=== PATIENT | male | born 1945 | race Caucasian/White ===

== ENCOUNTER → 2024-03-29 | Outpatient (CLI) | payer MEDICARE, OTHER ==
--- NOTE | 2024-03-29 09:24 | CT ---
EXAMINATION TYPE: CT brain wo con CT DLP: 995.50 mGycm, Automated exposure control for dose reduction was used. DATE OF EXAM: 03/29/2024 8:51 AM COMPARISON: None. CLINICAL INDICATION: Male, 78 years old with history of R55 SYNCOPE R56.9 CONVULSIONS, recent near sy ncope. hx of strokes. TECHNIQUE: Brain: Axial CT images of the brain were obtained with coronal and sagittal reformats created and rev iewed. Contrast used: None. Oral contrast used: None. FINDINGS: Brain: Extra-axial spaces: No abnormal extra-axial fluid collections. Ventricular system: Dilatation in proportion to cerebral atrophy. Cerebral parenchyma: Cerebral atrophy. No acute intraparenchymal hemorrhage or mass effect. The colin -white junction is well differentiated. Scattered hypoattenuating areas are seen within the white mat ter. Cerebellum: Unremarkable. Mass effect: No evidence of midline shift. Intracranial vasculature: Atherosclerotic calcifications of the intracranial vessels. Soft tissues: Normal. Calvarium/osseous structures: No depressed skull fracture. Paranasal sinuses and mastoid air cells: Mild scattered paranasal sinus disease. Visualized orbits: Orbital contents are intact. IMPRESSION: 1. No acute intracranial process. 2. Nonspecific white matter changes, likely secondary to chronic small vessel ischemic disease. [facility], , 03/29/2024 9:22 AM
== END | disposition home or self-care (01) ==
LOC: RADCTMAIN 08:29
PROVIDERS: ATTEND Psychiatry & Neurology Neurology
CPT/HCPCS: 70450